=== PATIENT | male | born 1955 | race American Indian/Alaskan Native ===

== ENCOUNTER 2017-02-19 11:00 | Emergency (ER) | payer MEDICAID ==
[2017-02-19] MEDS ORDERED: TORADOL IM ONE (14:06)
--- NOTE | 2017-02-19 14:52 | XRay Report ---
LEFT WRIST, 4 views: HISTORY: Left wrist pain. Normal bone mineralization. 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 No evidence for fracture, dislocation or ligamentous injury. There is mild diffuse soft tissue swelling. IMPRESSION: Degenerative changes. Soft tissue swelling. No acute bony injury. The
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
[2017-02-19 15:25] VITALS: BP 138/92
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
== END 2017-02-19 15:23 | disposition home or self-care (01) ==
LOC: ED 11:00
DX: M25.532 Pain in left wrist (principal); M25.512 Pain in left shoulder; I10 Essential (primary) hypertension; F17.200 Nicotine dependence, unspecified, uncomplicated; Y00.XXXA Assault by blunt object, initial encounter; Y93.89 Activity, other specified; Y92.89 Other specified places as the place of occurrence of the external cause; Y99.8 Other external cause status
CPT/HCPCS: 29125; 73030; 73110; 96372; 99283; J1885

== ENCOUNTER 2017-02-23 09:25 | Emergency (ER) | payer MEDICAID ==
[2017-02-23 09:48] VITALS: BP 144/96
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
[2017-02-23] MEDS ORDERED: TORADOL IM ONE (11:21)
[2017-02-23] MEDS ORDERED: DECADRON IM ONE (11:21)
== END 2017-02-23 13:14 | disposition home or self-care (01) ==
LOC: ED 09:25
DX: M10.9 Gout, unspecified (principal); M25.561 Pain in right knee; I10 Essential (primary) hypertension; F17.200 Nicotine dependence, unspecified, uncomplicated
CPT/HCPCS: 96372; 99282; J1100; J1885

== ENCOUNTER 2017-04-04 10:32 | Emergency (ER) | payer MEDICAID ==
[2017-04-04 10:43] VITALS: BP 115/79
[2017-04-04] MEDS ORDERED: MOTRIN PO ONE (12:46)
--- NOTE | 2017-04-04 18:46 | Emergency Department Report ---
Entered by MARTIN ALVAREZ, acting as scribe for GRADY WALTON NP. ED Upper Extremity Inj HPI - General Chief Complaint: Extremity Injury, Upper Stated Complaint: GOUT IN R ARM SWOLLEN Time Seen by Provider: 04/04/17 12:11 Source: patient Mode of arrival: Ambulatory Limitations: No Limitations - History of Present Illness Initial Comments: This is a 61 y/o male, nontoxic, well nourished in appearance, no acute signs of distress with a PMHx of HTN and gout presents with c/o right wrist pain that began 9 days ago. Rates pain an 8/10 in severity, which he describes as aching in quality. Aggravated with movement, and alleviated with immobilization and medication. Notes Hx of gout in bilateral wrists. Patient states symptoms are regular of gout attack and patient stated gets treated with steroids shot and steroids at discharge. Patient denies fever, chills, trauma to hand/arm, chest pain, SOB, CHIN or dizziness, numbness, tingling. Patient requests a gout medication refill and a steroid shot for pain. Notes he had pain in his left wrist recently, but the pain has resolved. Consumes EtOH daily. Patient denies any allergies. MD Complaint: Injury to:: right, wrist Onset/Timin -: days(s) Other Extremity Injury: Wrist: Right (no injury) Other Injuries: none Place: home Severity scale (0 -10): 8 Improves With: immobilization, medication Worsens With: movement of extremity Context: other (Hx of gout in right wrist and EtOH consumption) Associated Symptoms: denies other symptoms. denies: weakness, numbness, neck pain, suspects foreign body, nausea/vomiting, heard/felt popping sensat - Related Data Previous Rx's Medication Instructions Recorded Last Taken Type predniSONE [Deltasone] 40 mg PO QDAY 5 Days 08/08/16 Unknown Rx Ibuprofen [Motrin 800 MG tab] 800 mg PO Q8HR PRN #30 tablet 02/19/17 Unknown Rx Indomethacin 50 mg PO Q8H PRN #15 capsule 02/23/17 Unknown Rx oxyCODONE /ACETAMINOPHEN [Percocet 1 tab PO Q6HR PRN #12 tablet 02/23/17 Unknown Rx 5/325 mg] predniSONE [Deltasone] 50 mg PO QDAY #6 tab 02/23/17 Unknown Rx Ibuprofen [Motrin 600 MG tab] 600 mg PO Q8H PRN #20 tablet 04/04/17 Unknown Rx predniSONE [Deltasone] 20 mg PO BID #10 tab 04/04/17 Unknown Rx Allergies Allergy/AdvReac Type Severity Reaction Status Date / Time No Known Allergies Allergy Unverified 08/08/16 11:47 ED Review of Systems Comment: All other systems reviewed and negative Constitutional: denies: chills, fever Eyes: denies: eye pain, eye discharge, vision change ENT: denies: ear pain, throat pain Respiratory: denies: cough, orthopnea, shortness of breath, SOB with exertion, SOB at rest, stridor, wheezing Cardiovascular: denies: chest pain, palpitations Endocrine: no symptoms reported Gastrointestinal: denies: abdominal pain, nausea, vomiting, diarrhea Genitourinary: denies: urgency, dysuria Musculoskeletal: arthralgia (right wrist). denies: back pain, joint swelling Skin: denies: rash, lesions Neurological: denies: headache, weakness, numbness, paresthesias Psychiatric: denies: anxiety, depression Hematological/Lymphatic: denies: easy bleeding, easy bruising ED Past Medical Hx - Past Medical History Previous Medical History?: Yes Hx Hypertension: Yes Additional medical history: gout - Surgical History Past Surgical History?: Yes Additional Surgical History: Right inquinal hernia repair, Right ankle surgery - Social History Smoking Status: Current Every Day Smoker Substance Use Type: Alcohol, Prescribed - Medications Home Medications: Home Medications Medication Instructions Recorded Confirmed Last Taken Type predniSONE [Deltasone] 40 mg PO QDAY 5 Days 08/08/16 Unknown Rx Ibuprofen [Motrin 800 MG tab] 800 mg PO Q8HR PRN #30 tablet 02/19/17 Unknown Rx Indomethacin 50 mg PO Q8H PRN #15 capsule 02/23/17 Unknown Rx oxyCODONE /ACETAMINOPHEN [Percocet 1 tab PO Q6HR PRN #12 tablet 02/23/17 Unknown Rx 5/325 mg] predniSONE [Deltasone] 50 mg PO QDAY #6 tab 02/23/17 Unknown Rx Ibuprofen [Motrin 600 MG tab] 600 mg PO Q8H PRN #20 tablet 04/04/17 Unknown Rx predniSONE [Deltasone] 20 mg PO BID #10 tab 04/04/17 Unknown Rx ED Physical Exam - General Limitations: No Limitations General appearance: alert, in no apparent distress - Head Head exam: Present: atraumatic, normocephalic, normal inspection - Eye Eye exam: Present: normal appearance, PERRL, EOMI. Absent: scleral icterus, conjunctival injection, nystagmus, periorbital swelling, periorbital tenderness Pupils: Present: normal accommodation - ENT ENT exam: Present: normal exam, normal orophraynx, mucous membranes moist, TM's normal bilaterally, normal external ear exam - Neck Neck exam: Present: normal inspection, full ROM. Absent: tenderness, meningismus, lymphadenopathy, thyromegaly - Respiratory Respiratory exam: Present: normal lung sounds bilaterally. Absent: respiratory distress, wheezes, rales, rhonchi, stridor, accessory muscle use, decreased breath sounds - Cardiovascular Cardiovascular Exam: Present: regular rate, normal rhythm, normal heart sounds. Absent: bradycardia, tachycardia, irregular rhythm, systolic murmur, diastolic murmur, rubs, gallop - GI/Abdominal GI/Abdominal exam: Present: soft, normal bowel sounds. Absent: distended, tenderness, guarding, rebound, rigid, diminished bowel sounds - Rectal Rectal exam: Present: deferred - Extremities Exam Extremities exam: Present: full ROM, tenderness (rigth wrist and hand digits), normal capillary refill, joint swelling (right wrist and hand digits). Absent: pedal edema, calf tenderness - Expanded Upper Extremity Exam Right General: Present: normal inspection. Absent: laceration, abrasion, nail injury (#), foreign body, amputation, avulsion Shoulder Exam: Present: normal inspection, full ROM. Absent: tenderness, swelling, abrasion, laceration, ecchymosis, deformity, crepidus, dislocation, erythema, tenderness over AC joint Upper Arm exam: Present: normal inspection, full ROM. Absent: tenderness, swelling, abrasion, laceration, ecchymosis, deformity, crepidus, dislocation, erythema Elbow exam: Present: normal inspection, full ROM. Absent: tenderness, swelling , abrasion, laceration, ecchymosis, deformity, crepidus, dislocation, erythema, effusion, pain w/ pronation/supination, tenderness over radial head Forearm Wrist exam: Present: normal inspection, full ROM. Absent: tenderness, swelling, abrasion, laceration, ecchymosis, deformity, crepidus, dislocation, erythema, tenderness over anatomical snuff box, pain with axial thumb loading Hand Wrist exam: Present: full ROM, tenderness (wrist and hand digits), swelling (hand digits and wrist). Absent: abrasion, laceration, ecchymosis, deformity, crepidus, dislocation, erythema, amputation, nail avulsion, subungual hematoma Neuro motor exam: Present: wrist extension intact, thumb opposition intact, thumb IP flexion intact, thumb adduction intact, fingers 2-5 abduction intact Neurosensory exam: Present: 2-point discrimination, radial nerve intact, ulnar nerve intact, median nerve intact Vascular: Present: normal capillary refill, radial pulse (2+), brachial pulse (2 +), ulnar pulse (2+). Absent: vascular compromise, Pallo, pulse deficit radial art, pulse deficit ulnar art, pulse deficit brachial art - Back Exam Back exam: Present: normal inspection, full ROM. Absent: tenderness, CVA tenderness (R), CVA tenderness (L), muscle spasm, paraspinal tenderness, vertebral tenderness, rash noted - Neurological Exam Neurological exam: Present: alert, oriented X3, CN II-XII intact, normal gait, reflexes normal. Absent: abnormal gait, motor sensory deficit - Psychiatric Psychiatric exam: Present: normal affect, normal mood - Skin Skin exam: Present: warm, dry, intact. Absent: rash - Other Other exam information: Negative joint redness. ED Course Vital Signs 04/04/17 10:39 Temperature 98.3 F Pulse Rate 66 Respiratory 18 Rate Blood Pressure 115/79 O2 Sat by Pulse 99 Oximetry - Reevaluation(s) Reevaluation #1: 04/04/17 12:42 Patient is able to speak in full sentences with no signs of distress. ED Medical Decision Making - Medical Decision Making Ed course: This is a 61-year-old male that presents with gout 1- patient was examined by myself. Symptoms and signs are consistent with gout attack. Patient received solu-medrol 125mg Im in the Ed. 2- Patient was d/c is prednisone and ibuprofen recommended discharge 3- at time time of discharge, the patient does not seem toxic or ill in appearance. No acute signs of distress noted. Patient agrees to discharge treatment plan of care. No further questions noted by the patient. 4- patient was instructed to follow-up with her primary care doctor in 3-5 days or if symptoms worsen such as numbness, tingling, joint redness, increased swelling, chest pain, shortness of breath, nausea or vomiting returns to emergency room as soon as possible. ED Disposition Clinical Impression: Gout attack Qualifiers: Gout site: hand Gout etiology: unspecified cause Laterality: right Qualified Code(s): M10.9 - Gout, unspecified Disposition: TO HOME OR SELFCARE Is pt being admited?: No Does the pt Need Aspirin: No Condition: Stable Instructions: Acute Gouty Arthritis (ED), Ibuprofen (By mouth), Prednisone (By mouth) Additional Instructions: follow-up with your primary care doctor in 3-5 days or if symptoms worsen such as numbness, tingling, joint redness, increased swelling, chest pain, shortness of breath, nausea or vomiting returns to emergency room as soon as possible. Take full course of prednisone as prescribed. Prescriptions: Ibuprofen [Motrin 600 MG tab] 600 mg PO Q8H PRN #20 tablet PRN Reason: Pain predniSONE [Deltasone] 20 mg PO BID #10 tab Referrals: PRIMARY CAREMD [Primary Care Provider] - 3-5 Days SUNNI CARBAJAL JR, MD [Staff Physician] - 3-5 Days [facility] [Outside] - 3-5 Days [facility] [Outside] - 3-5 Days Forms: Work/School Release Form(ED) This documentation as recorded by the ANTONIO becerra JASMINE,accurately reflects the service I personally performed and the decisions made by ,GRADY WALTON, DEE.
== END 2017-04-04 13:31 | disposition home or self-care (01) ==
LOC: ED 10:32
DX: M10.9 Gout, unspecified (principal); I10 Essential (primary) hypertension; F17.210 Nicotine dependence, cigarettes, uncomplicated
CPT/HCPCS: 96372; 99282; J2930

== ENCOUNTER 2018-03-01 08:36 | Emergency (ER) | payer MEDICAID ==
--- NOTE | 2018-03-01 09:21 | Emergency Department Report ---
ED Upper Extremity Inj HPI - General Chief Complaint: Extremity Injury, Upper Stated Complaint: GOUT IN LEFT ARM Time Seen by Provider: 03/01/18 09:09 Source: patient Mode of arrival: Ambulatory Limitations: No Limitations - History of Present Illness Initial Comments: This is a 62-year-old -[place] male that presents with left elbow shoulder and hand pain for the past 3 days. Patient has a history of gout and hypertension. Patient reports an increase intake of beer which possibly aggravated gout. He is currently taking ibuprofen and allopurinol with no improvement of symptoms. Patient states he can hardly move his left arm and hand due to pain. He has pronounced swelling to left hand. Patient denies recent injury, fever, chest pain, shortness of breath, and numbness or tingling. MD Complaint: Injury to:: left, shoulder, elbow, hand -: days(s) Other Extremity Injury: Hand: Left (swelling and painful ROM), Elbow: Left ( painful ROM), Shoulder: Left (painful ROM) Other Injuries: none Handedness: right Place: home Severity scale (0 -10): 10 Improves With: none Worsens With: movement of extremity Associated Symptoms: denies other symptoms Treatments Prior to Arrival: NSAIDS - Related Data Previous Rx's Medication Instructions Recorded Last Taken Type predniSONE [Deltasone] 40 mg PO QDAY 5 Days tab 08/08/16 Unknown Rx Ibuprofen [Motrin 800 MG tab] 800 mg PO Q8HR PRN #30 tablet 02/19/17 Unknown Rx Indomethacin 50 mg PO Q8H PRN #15 capsule 02/23/17 Unknown Rx oxyCODONE /ACETAMINOPHEN [Percocet 1 tab PO Q6HR PRN #12 tablet 02/23/17 Unknown Rx 5/325 mg] predniSONE [Deltasone] 50 mg PO QDAY #6 tab 02/23/17 Unknown Rx Ibuprofen [Motrin 600 MG tab] 600 mg PO Q8H PRN #20 tablet 04/04/17 Unknown Rx predniSONE [Deltasone] 20 mg PO BID #10 tab 04/04/17 Unknown Rx Ibuprofen [Motrin 800 MG tab] 800 mg PO Q8HR PRN #20 tablet 03/01/18 Unknown Rx Prednisone [predniSONE 10 mg 10 mg PO .TAPER #1 tab.ds.pk 03/01/18 Unknown Rx (6-Day Pack, 21 Tabs)] traMADol [Ultram 50 MG tab] 50 mg PO Q6HR PRN #15 tablet 03/01/18 Unknown Rx Allergies Allergy/AdvReac Type Severity Reaction Status Date / Time No Known Allergies Allergy Unverified 08/08/16 11:47 ED Review of Systems ROS: Stated complaint: GOUT IN LEFT ARM Other details as noted in HPI Constitutional: denies: chills, fever Respiratory: denies: cough, shortness of breath, wheezing Cardiovascular: denies: chest pain, palpitations Gastrointestinal: denies: abdominal pain, nausea, vomiting, diarrhea Musculoskeletal: joint swelling (left hand ), arthralgia (left upper extremity from shoulder, elbow, and hand). denies: back pain Neurological: denies: headache, weakness, numbness, paresthesias Psychiatric: denies: anxiety, depression ED Past Medical Hx - Past Medical History Hx Hypertension: Yes Additional medical history: gout - Surgical History Additional Surgical History: Right inquinal hernia repair, Right ankle surgery - Social History Smoking Status: Current Every Day Smoker - Medications Home Medications: Home Medications Medication Instructions Recorded Confirmed Last Taken Type predniSONE [Deltasone] 40 mg PO QDAY 5 Days tab 08/08/16 Unknown Rx Ibuprofen [Motrin 800 MG tab] 800 mg PO Q8HR PRN #30 tablet 02/19/17 Unknown Rx Indomethacin 50 mg PO Q8H PRN #15 capsule 02/23/17 Unknown Rx oxyCODONE /ACETAMINOPHEN [Percocet 1 tab PO Q6HR PRN #12 tablet 02/23/17 Unknown Rx 5/325 mg] predniSONE [Deltasone] 50 mg PO QDAY #6 tab 02/23/17 Unknown Rx Ibuprofen [Motrin 600 MG tab] 600 mg PO Q8H PRN #20 tablet 04/04/17 Unknown Rx predniSONE [Deltasone] 20 mg PO BID #10 tab 04/04/17 Unknown Rx Ibuprofen [Motrin 800 MG tab] 800 mg PO Q8HR PRN #20 tablet 03/01/18 Unknown Rx Prednisone [predniSONE 10 mg 10 mg PO .TAPER #1 tab.ds.pk 03/01/18 Unknown Rx (6-Day Pack, 21 Tabs)] traMADol [Ultram 50 MG tab] 50 mg PO Q6HR PRN #15 tablet 03/01/18 Unknown Rx ED Physical Exam - General Limitations: No Limitations General appearance: alert, in no apparent distress - Respiratory Respiratory exam: Present: normal lung sounds bilaterally. Absent: respiratory distress, accessory muscle use - Cardiovascular Cardiovascular Exam: Present: regular rate, normal rhythm, normal heart sounds. Absent: systolic murmur, diastolic murmur, rubs, gallop - GI/Abdominal GI/Abdominal exam: Present: soft, normal bowel sounds. Absent: organomegaly, mass - Expanded Upper Extremity Exam Left Shoulder Exam: Present: tenderness, tenderness over AC joint. Absent: full ROM (limited ROM secondary pain), swelling, abrasion, ecchymosis, deformity, crepidus Upper Arm exam: Present: normal inspection, full ROM Elbow exam: Present: tenderness, swelling, pain w/ pronation/supination. Absent : full ROM (limited ROM secondary pain), abrasion, laceration, ecchymosis, deformity, dislocation, erythema, tenderness over radial head Forearm Wrist exam: Present: normal inspection, full ROM Hand Wrist exam: Present: tenderness, swelling. Absent: full ROM (limited ROM secondary pain and swelling), abrasion, laceration, ecchymosis, deformity, crepidus, dislocation, erythema, amputation, nail avulsion, subungual hematoma Neurosensory exam: Present: radial nerve intact, median nerve intact Vascular: Present: normal capillary refill, radial pulse - Neurological Exam Neurological exam: Present: alert, oriented X3, normal gait - Psychiatric Psychiatric exam: Present: normal affect, normal mood - Skin Skin exam: Present: warm, dry, intact, normal color. Absent: rash ED Course Vital Signs 03/01/18 03/01/18 08:43 10:02 Temperature 98.2 F Pulse Rate 70 77 Respiratory 16 18 Rate Blood Pressure 157/107 Blood Pressure 156/100 [Right] O2 Sat by Pulse 97 100 Oximetry ED Medical Decision Making - Radiology Data Radiology results: report reviewed LEFT SHOULDER, 3 views: History: Left shoulder pain, gout. Normal bone mineralization. Mild osteoarthritic changes are identified at the glenohumeral joint and acromioclavicular joint. No evidence for fracture, dislocation, ligamentous injury or bone lesion. The soft tissues are unremarkable. IMPRESSION: Mild osteoarthritic changes. LEFT HAND, 2 VIEWS History: Joint swelling, painful PIP joint Findings: No comparison. There is diffuse soft tissue swelling. Bone mineralization is within normal limits. Chronic healed fracture of the fifth metacarpal is noted. No acute fracture is appreciated. The fifth digit is in flexion at the PIP joint on both images. The PIP joint is poorly imaged on this exam but there appears to be moderate arthritic changes. The remaining joint spaces demonstrate mild narrowing. No erosive joint pathology. Impression: Limited exam. Arthritic changes at the PIP joint of the fifth digit are suspected but poorly imaged. Chronic, healed fifth metacarpal fracture. No acute process identified. - Medical Decision Making This is a 62 y.o. male that presents with LUE pain x 3 days. Hx of gout & HTN. Patient is stable and examined by me. Elevated blood pressure on arrival with history of hypertension, asymptomatic. He has not taken blood pressure medicine today, will take it when he arrives home. Obtained Uric acid, XR of left hand, elbow, and shoulder. Given ibuprofen 800 mg by mouth and dexamethasone 8 mg IM once in ER. Mild osteoarthritic changes. Limited exam. Arthritic changes at the PIP joint of the fifth digit are suspected but poorly imaged. Chronic, healed fifth metacarpal fracture. No acute process identified. Physical findings susceptible of gout flare. Discussed plan to start prednisone taper, tramadol 50 mg po q6h prn #15, and ibuprofen 800 mg po q6h prn with patient. Educated patient on low purine diet and given handout. Patient agrees to ED plan of care. Discharged home and follow up with PCP in 3 days. Critical care attestation.: If time is entered above; I have spent that time in minutes in the direct care of this critically ill patient, excluding procedure time. 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 Reduce intake of alcohol, especially beer, lowers the risk of gout. Reduce the intake of vegetables high in purines such as asparagus, spinach, and mushrooms. Dairy products reduce the risk of gout. Follow up with primary care provider in 2-3 days. Prescriptions: Ibuprofen [Motrin 800 MG tab] 800 mg PO Q8HR PRN #20 tablet PRN Reason: Pain Prednisone [predniSONE 10 mg (6-Day Pack, 21 Tabs)] 10 mg PO .TAPER #1 tab.ds.pk traMADol [Ultram 50 MG tab] 50 mg PO Q6HR PRN #15 tablet PRN Reason: Pain Referrals: [facility] [Outside] - 3-5 Days [facility] [Outside] - 3-5 Days [facility] [Outside] - 3-5 Days Time of Disposition: 09:59 Print Language: SLOVENIAN
[2018-03-01] MEDS ORDERED: MOTRIN PO ONE (09:31)
[2018-03-01] MEDS ORDERED: DECADRON IM ONE (09:31)
--- NOTE | 2018-03-01 09:53 | XRay Report ---
LEFT HAND, 2 VIEWS History: Joint swelling, painful PIP joint Findings: No comparison. There is diffuse soft tissue swelling. Bone mineralization is within normal limits. Chronic healed fracture of the fifth metacarpal is noted. No acute fracture is appreciated. The fifth digit is in flexion at the PIP joint on both images. The PIP joint is poorly imaged on this exam but there appears to be moderate arthritic changes. The remaining joint spaces demonstrate mild narrowing. No erosive joint pathology. Impression: Limited exam. Arthritic changes at the PIP joint of the fifth digit are suspected but poorly imaged. Chronic, healed fifth metacarpal fracture. No acute process identified.
--- NOTE | 2018-03-01 09:54 | XRay Report ---
LEFT SHOULDER, 3 views: History: Left shoulder pain, gout. Normal bone mineralization. Mild osteoarthritic changes are identified at the glenohumeral joint and acromioclavicular joint. No evidence for fracture, dislocation, ligamentous injury or bone lesion. The soft tissues are unremarkable. IMPRESSION: Mild osteoarthritic changes.
[2018-03-01 10:03] VITALS: BP 156/100
== END 2018-03-01 10:09 | disposition home or self-care (01) ==
LOC: ED 08:36
DX: M10.042 Idiopathic gout, left hand (principal); M1A.0220 Idiopathic chronic gout, left elbow, without tophus (tophi); M1A.0120 Idiopathic chronic gout, left shoulder, without tophus (tophi); I10 Essential (primary) hypertension; F17.200 Nicotine dependence, unspecified, uncomplicated
CPT/HCPCS: 36415; 73030; 73120; 84550; 96372; 99283; J1100

== ENCOUNTER 2018-06-24 08:37 | Emergency (ER) | payer MEDICAID ==
[2018-06-24 08:50] VITALS: BP 144/96
[2018-06-24] MEDS ORDERED: COLCHICINE PO ONE ×2 (09:02→09:30)
[2018-06-24] MEDS ORDERED: MOTRIN PO ONE (09:02)
[2018-06-24] MEDS ORDERED: NORCO 7.5/325 PO ONE (09:02)
--- NOTE | 2018-06-24 09:11 | Emergency Department Report ---
ED Extremity Problem HPI - General Chief complaint: Extremity Injury, Upper Stated complaint: GOUT IN (R) HAND Time Seen by Provider: 06/24/18 08:58 Source: patient Mode of arrival: Ambulatory Limitations: No Limitations - History of Present Illness Initial comments: Patient is a 62-year-old -British male who is presenting With gout exacerbation. Patient states for the past 4-5 days he's had some increased swelling to the right wrist. Patient's been using ice but is not helping. Patient states the aching throbbing pain that is a 7 out of 10 in severity. Patient states it hurts to move the wrist. Patient's denies any fevers chills nausea vomiting at this time. - Related Data Previous Rx's Medication Instructions Recorded Last Taken Type predniSONE [Deltasone] 40 mg PO QDAY 5 Days tab 08/08/16 Unknown Rx Ibuprofen [Motrin 800 MG tab] 800 mg PO Q8HR PRN #30 tablet 02/19/17 Unknown Rx Indomethacin 50 mg PO Q8H PRN #15 capsule 02/23/17 Unknown Rx oxyCODONE /ACETAMINOPHEN [Percocet 1 tab PO Q6HR PRN #12 tablet 02/23/17 Unknown Rx 5/325 mg] predniSONE [Deltasone] 50 mg PO QDAY #6 tab 02/23/17 Unknown Rx Ibuprofen [Motrin 600 MG tab] 600 mg PO Q8H PRN #20 tablet 04/04/17 Unknown Rx predniSONE [Deltasone] 20 mg PO BID #10 tab 04/04/17 Unknown Rx Ibuprofen [Motrin 800 MG tab] 800 mg PO Q8HR PRN #20 tablet 03/01/18 Unknown Rx Prednisone [predniSONE 10 mg 10 mg PO .TAPER #1 tab.ds.pk 03/01/18 Unknown Rx (6-Day Pack, 21 Tabs)] traMADol [Ultram 50 MG tab] 50 mg PO Q6HR PRN #15 tablet 03/01/18 Unknown Rx HYDROcodone/APAP 5-325 [[place] 1 each PO Q6HR PRN #15 tablet 06/24/18 Unknown Rx 5/325] Ibuprofen [Motrin] 800 mg PO Q8HR PRN #20 tablet 06/24/18 Unknown Rx Allergies Allergy/AdvReac Type Severity Reaction Status Date / Time No Known Allergies Allergy Verified 06/24/18 08:48 ED Review of Systems ROS: Stated complaint: GOUT IN (R) HAND Other details as noted in HPI Comment: All other systems reviewed and negative ED Past Medical Hx - Past Medical History Hx Hypertension: Yes Additional medical history: gout - Surgical History Additional Surgical History: Right inquinal hernia repair, Right ankle surgery - Social History Smoking Status: Current Every Day Smoker Substance Use Type: Alcohol - Medications Home Medications: Home Medications Medication Instructions Recorded Confirmed Last Taken Type predniSONE [Deltasone] 40 mg PO QDAY 5 Days tab 08/08/16 Unknown Rx Ibuprofen [Motrin 800 MG tab] 800 mg PO Q8HR PRN #30 tablet 02/19/17 Unknown Rx Indomethacin 50 mg PO Q8H PRN #15 capsule 02/23/17 Unknown Rx oxyCODONE /ACETAMINOPHEN [Percocet 1 tab PO Q6HR PRN #12 tablet 02/23/17 Unknown Rx 5/325 mg] predniSONE [Deltasone] 50 mg PO QDAY #6 tab 02/23/17 Unknown Rx Ibuprofen [Motrin 600 MG tab] 600 mg PO Q8H PRN #20 tablet 04/04/17 Unknown Rx predniSONE [Deltasone] 20 mg PO BID #10 tab 04/04/17 Unknown Rx Ibuprofen [Motrin 800 MG tab] 800 mg PO Q8HR PRN #20 tablet 03/01/18 Unknown Rx Prednisone [predniSONE 10 mg 10 mg PO .TAPER #1 tab.ds.pk 03/01/18 Unknown Rx (6-Day Pack, 21 Tabs)] traMADol [Ultram 50 MG tab] 50 mg PO Q6HR PRN #15 tablet 03/01/18 Unknown Rx HYDROcodone/APAP 5-325 [[place] 1 each PO Q6HR PRN #15 tablet 06/24/18 Unknown Rx 5/325] Ibuprofen [Motrin] 800 mg PO Q8HR PRN #20 tablet 06/24/18 Unknown Rx ED Physical Exam - General Limitations: No Limitations General appearance: alert, in no apparent distress - Head Head exam: Present: atraumatic, normocephalic - Eye Eye exam: Present: normal appearance - ENT ENT exam: Present: mucous membranes moist - Neck Neck exam: Present: normal inspection - Respiratory Respiratory exam: Present: normal lung sounds bilaterally. Absent: respiratory distress, wheezes, rales, rhonchi - Cardiovascular Cardiovascular Exam: Present: regular rate, normal rhythm. Absent: systolic murmur, diastolic murmur, rubs, gallop - GI/Abdominal GI/Abdominal exam: Present: soft, normal bowel sounds. Absent: distended, tenderness - Rectal Rectal exam: Present: deferred - Extremities Exam Extremities exam: Present: normal inspection, tenderness, joint swelling ( patient's right wrist shows some mild swelling without erythema or warmth.) - Back Exam Back exam: Present: normal inspection - Neurological Exam Neurological exam: Present: alert, oriented X3 - Psychiatric Psychiatric exam: Present: normal affect, normal mood - Skin Skin exam: Present: warm, dry, intact, normal color. Absent: rash ED Course Vital Signs 06/24/18 08:48 Temperature 98.4 F Pulse Rate 63 Respiratory 18 Rate Blood Pressure 144/96 O2 Sat by Pulse 96 Oximetry ED Medical Decision Making - Medical Decision Making Patient started on colchicine for acute gouty arthritis flareup and be discharged home with pain meds. Critical care attestation.: If time is entered above; I have spent that time in minutes in the direct care of this critically ill patient, excluding procedure time. ED Disposition Clinical Impression: Gout attack Qualifiers: Gout site: wrist Gout etiology: unspecified cause Laterality: right Qualified Code(s): M10.9 - Gout, unspecified Disposition: - TO HOME OR SELFCARE Is pt being admited?: No Does the pt Need Aspirin: No Condition: Stable Instructions: Acute Gouty Arthritis (ED) Time of Disposition: 09:11
== END 2018-06-24 10:23 | disposition home or self-care (01) ==
LOC: ED 08:37
DX: M10.031 Idiopathic gout, right wrist (principal); I10 Essential (primary) hypertension; F17.200 Nicotine dependence, unspecified, uncomplicated
CPT/HCPCS: 99282

== ENCOUNTER 2019-02-27 07:12 | Emergency (ER) | payer MEDICAID ==
[2019-02-27 07:31] VITALS: BP 115/99
[2019-02-27] MEDS ORDERED: TORADOL IM ONE (09:28)
--- NOTE | 2019-02-27 09:31 | Emergency Department Report ---
ED General Adult HPI - General Chief complaint: Extremity Problem,Nontraumatic Stated complaint: ARM SWELLING Time Seen by Provider: 02/27/19 09:25 Source: patient Mode of arrival: Ambulatory Limitations: No Limitations - History of Present Illness Initial comments: Patient is 63 years old male with history of hypertension and gout. Patient presented to the ER complaining of right wrist swelling for the last few days. Patient stated that this is typical for his gout attack. Patient denied any fever, recent injury or any other symptoms. - Related Data Previous Rx's Medication Instructions Recorded Last Taken Type predniSONE [Deltasone] 40 mg PO QDAY 5 Days tab 08/08/16 Unknown Rx Ibuprofen [Motrin 800 MG tab] 800 mg PO Q8HR PRN #30 tablet 02/19/17 Unknown Rx Indomethacin 50 mg PO Q8H PRN #15 capsule 02/23/17 Unknown Rx oxyCODONE /ACETAMINOPHEN [Percocet 1 tab PO Q6HR PRN #12 tablet 02/23/17 Unknown Rx 5/325 mg] predniSONE [Deltasone] 50 mg PO QDAY #6 tab 02/23/17 Unknown Rx Ibuprofen [Motrin 600 MG tab] 600 mg PO Q8H PRN #20 tablet 04/04/17 Unknown Rx predniSONE [Deltasone] 20 mg PO BID #10 tab 04/04/17 Unknown Rx Ibuprofen [Motrin 800 MG tab] 800 mg PO Q8HR PRN #20 tablet 03/01/18 Unknown Rx Prednisone [predniSONE 10 mg 10 mg PO .TAPER #1 tab.ds.pk 03/01/18 Unknown Rx (6-Day Pack, 21 Tabs)] traMADol [Ultram 50 MG tab] 50 mg PO Q6HR PRN #15 tablet 03/01/18 Unknown Rx HYDROcodone/APAP 5-325 [[place] 1 each PO Q6HR PRN #15 tablet 06/24/18 Unknown Rx 5/325] Ibuprofen [Motrin] 800 mg PO Q8HR PRN #20 tablet 06/24/18 Unknown Rx Allergies Allergy/AdvReac Type Severity Reaction Status Date / Time No Known Allergies Allergy Verified 06/24/18 08:48 ED Review of Systems ROS: Stated complaint: ARM SWELLING Other details as noted in HPI Comment: All other systems reviewed and negative Constitutional: denies: chills, fever Respiratory: denies: cough, shortness of breath, SOB with exertion Gastrointestinal: denies: abdominal pain, nausea, vomiting Musculoskeletal: joint swelling, arthralgia. denies: back pain ED Past Medical Hx - Past Medical History Previous Medical History?: Yes Hx Hypertension: Yes Additional medical history: gout - Surgical History Past Surgical History?: Yes Additional Surgical History: Right inquinal hernia repair, Right ankle surgery - Social History Smoking Status: Current Every Day Smoker Substance Use Type: Alcohol - Medications Home Medications: Home Medications Medication Instructions Recorded Confirmed Last Taken Type predniSONE [Deltasone] 40 mg PO QDAY 5 Days tab 08/08/16 Unknown Rx Ibuprofen [Motrin 800 MG tab] 800 mg PO Q8HR PRN #30 tablet 02/19/17 Unknown Rx Indomethacin 50 mg PO Q8H PRN #15 capsule 02/23/17 Unknown Rx oxyCODONE /ACETAMINOPHEN [Percocet 1 tab PO Q6HR PRN #12 tablet 02/23/17 Unknown Rx 5/325 mg] predniSONE [Deltasone] 50 mg PO QDAY #6 tab 02/23/17 Unknown Rx Ibuprofen [Motrin 600 MG tab] 600 mg PO Q8H PRN #20 tablet 04/04/17 Unknown Rx predniSONE [Deltasone] 20 mg PO BID #10 tab 04/04/17 Unknown Rx Ibuprofen [Motrin 800 MG tab] 800 mg PO Q8HR PRN #20 tablet 03/01/18 Unknown Rx Prednisone [predniSONE 10 mg 10 mg PO .TAPER #1 tab.ds.pk 03/01/18 Unknown Rx (6-Day Pack, 21 Tabs)] traMADol [Ultram 50 MG tab] 50 mg PO Q6HR PRN #15 tablet 03/01/18 Unknown Rx HYDROcodone/APAP 5-325 [[place] 1 each PO Q6HR PRN #15 tablet 06/24/18 Unknown Rx 5/325] Ibuprofen [Motrin] 800 mg PO Q8HR PRN #20 tablet 06/24/18 Unknown Rx ED Physical Exam - General Limitations: No Limitations General appearance: alert, in no apparent distress - Head Head exam: Present: atraumatic, normocephalic - Eye Eye exam: Present: normal appearance, PERRL - Neck Neck exam: Present: normal inspection. Absent: tenderness, meningismus - Respiratory Respiratory exam: Present: normal lung sounds bilaterally - Cardiovascular Cardiovascular Exam: Present: regular rate, normal rhythm - Expanded Upper Extremity Exam Right Elbow exam: Present: tenderness, swelling Forearm Wrist exam: Present: tenderness, swelling. Absent: laceration, ecchymosis, deformity, crepidus, erythema, tenderness over anatomical snuff box Neuro motor exam: Present: wrist extension intact, thumb opposition intact, thumb IP flexion intact, thumb adduction intact, fingers 2-5 abduction intact Neurosensory exam: Present: 2-point discrimination, radial nerve intact Vascular: Present: normal capillary refill ED Course Vital Signs 02/27/19 07:29 Temperature 98.7 F Pulse Rate 93 H Respiratory 18 Rate Blood Pressure 115/99 O2 Sat by Pulse 96 Oximetry Critical care attestation.: If time is entered above; I have spent that time in minutes in the direct care of this critically ill patient, excluding procedure time. ED Disposition Clinical Impression: Right wrist pain, Gout attack Disposition: TO HOME OR SELFCARE Is pt being admited?: No Condition: Stable Instructions: Acute Gouty Arthritis (ED) [facility]errals[facility] [Primary Care Provider] - 3-5 Days
== END 2019-02-27 09:50 | disposition home or self-care (01) ==
LOC: ED 07:12
DX: M10.9 Gout, unspecified (principal); I10 Essential (primary) hypertension; F17.200 Nicotine dependence, unspecified, uncomplicated
CPT/HCPCS: 96372; 99282; J1885

== ENCOUNTER 2019-03-06 07:10 | Emergency (ER) | payer MEDICAID ==
[2019-03-06 07:29] VITALS: BP 127/87
--- NOTE | 2019-03-06 08:28 | XRay Report ---
RIGHT WRIST, 3 VIEWS: History: wrist pain, injury. There is moderate diffuse soft tissue swelling. Borderline osteopenia. There is deformity of the distal ulna and ulnar styloid which could represent a mildly displaced fracture. The scapholunate interval appears widened which probably indicates scapholunate ligament injury. The remaining bony structures are unremarkable. IMPRESSION: Probable fracture involving the distal ulna and ulnar styloid. Scapholunate ligament injury is suspected.
[2019-03-06] MEDS ORDERED: TORADOL IM ONE (08:36)
[2019-03-06] MEDS ORDERED: NORCO 5/325 PO ONE (08:36)
--- NOTE | 2019-03-06 08:43 | Emergency Department Report ---
ED Recheck HPI - General Chief Complaint: Extremity Injury, Upper Stated Complaint: WRIST INJURY Time Seen by Provider: 03/06/19 07:37 Source: patient Mode of arrival: Ambulatory Limitations: No Limitations - History of Present Illness Initial Comments: Patient is a 63-year-old male that was treated just a couple days ago in this emergency room for gout. He comes back today with ongoing wrist pain. Patient states that as the swelling has gone down and the pain has not ceased. Patient has a deformity of the wrist noted. X-ray ordered in triage is positive for an ulnar fracture. Patient neurovascularly intact - Related Data Previous Rx's Medication Instructions Recorded Last Taken Type Prednisone [predniSONE 10 mg 10 mg PO .TAPER #1 tab.ds.pk 02/27/19 Unknown Rx (6-Day Pack, 21 Tabs)] traMADol [Ultram] 50 mg PO Q6HR PRN #10 tablet 03/06/19 Unknown Rx Allergies Allergy/AdvReac Type Severity Reaction Status Date / Time No Known Allergies Allergy Verified 03/06/19 07:15 ED Review of Systems ROS: Stated complaint: WRIST INJURY Other details as noted in HPI Comment: All other systems reviewed and negative ED Past Medical Hx - Past Medical History Hx Hypertension: Yes Additional medical history: gout - Surgical History Additional Surgical History: Right inquinal hernia repair, Right ankle surgery - Family History Family history: no significant - Social History Smoking Status: Current Some Day Smoker Substance Use Type: Alcohol - Medications Home Medications: Home Medications Medication Instructions Recorded Confirmed Last Taken Type Prednisone [predniSONE 10 mg 10 mg PO .TAPER #1 tab.ds.pk 02/27/19 Unknown Rx (6-Day Pack, 21 Tabs)] traMADol [Ultram] 50 mg PO Q6HR PRN #10 tablet 03/06/19 Unknown Rx ED Physical Exam - General Limitations: No Limitations - Other Other exam information: WDWN patient in NAD VS per RN flow sheet Alert and oriented to person, place and time. S1-S2. No S3 or S4. No systolic or diastolic murmur. No JVD. No pitting edema. Lungs clear to auscultation bilaterally anteriorly and posteriorly. Abdomen soft nontender bowel sounds x4 Moves all extremities well. Mood and affect appropriate. ED Course Vital Signs 03/06/19 03/06/19 03/06/19 07:27 09:19 09:49 Temperature 97.9 F Pulse Rate 71 Respiratory 14 18 17 Rate Blood Pressure 127/87 [Left] O2 Sat by Pulse 99 Oximetry 03/06/19 09:50 Temperature Pulse Rate Respiratory 17 Rate Blood Pressure [Left] O2 Sat by Pulse Oximetry ED Recheck MDM - Medical Decision Making xray noted medicated for pain splint applied neurovasc intact before and after splint radial/ulnar pulses plus2 radial/ulnar and medial nerve intact rapid cap refill ROM of wrist limited by pain. dc home with dc plan of care and ortho follow up. Vital Signs 03/06/19 03/06/19 03/06/19 07:27 09:19 09:49 Temperature 97.9 F Pulse Rate 71 Respiratory 14 18 17 Rate Blood Pressure 127/87 [Left] O2 Sat by Pulse 99 Oximetry 03/06/19 09:50 Temperature Pulse Rate Respiratory 17 Rate Blood Pressure [Left] O2 Sat by Pulse Oximetry Critical care attestation.: If time is entered above; I have spent that time in minutes in the direct care of this critically ill patient, excluding procedure time. ED Disposition Clinical Impression: Ulnar fracture, Injury of ligament Disposition: DC-01 TO HOME OR SELFCARE Is pt being admited?: No Does the pt Need Aspirin: No Condition: Stable Instructions: Arm Fracture in Adults (ED) Additional Instructions: DIET TOLERATED MEDS ORDERED TODAY IN ER FOLLOW INSTRUCTIONS ON THE BOTTLE FOLLOW UP PCP WITHIN 48 HOURS TO ENSURE YOU ARE GETTING BETTER ACTIVITY TOLERATED MOTRIN OR TYLENOL FOR MILD PAIN RETURN TO THE ER FOR WORSENING SYMPTOMS NOT RELIEVED BY YOUR MEDICATIONS. SPLINT ICE REST ELEVATE SLING MEDS ORDERED FOLLOW UP WITH ORTHO NEXT WEEK REFERRAL BELOW Prescriptions: traMADol [Ultram] 50 mg PO Q6HR PRN #10 tablet PRN Reason: Pain Referrals: LEO HERNANDEZ MD [Staff Physician] - 3-5 Days Time of Disposition: 08:40
== END 2019-03-06 10:00 | disposition home or self-care (01) ==
LOC: ED 07:10
DX: S52.601A Unspecified fracture of lower end of right ulna, initial encounter for closed fracture (principal); I10 Essential (primary) hypertension; F17.200 Nicotine dependence, unspecified, uncomplicated; M10.9 Gout, unspecified; X58.XXXA Exposure to other specified factors, initial encounter; Y93.89 Activity, other specified; Y92.89 Other specified places as the place of occurrence of the external cause; Y99.8 Other external cause status
CPT/HCPCS: 29125; 73110; 96372; 99284; J1885